=== PATIENT | female | born 1965 | race Caucasian/White ===

== ENCOUNTER 2024-11-25 15:07 | Observation (INO) | payer BC ==
--- NOTE | 2024-11-25 15:54 | ED ---
General Adult HPI - General Chief complaint: Abdominal Pain Stated complaint: apendecitis Time Seen by Provider: 11/25/24 15:18 Source: patient, RN notes reviewed, old records reviewed Mode of arrival: EMS Limitations: no limitations - History of Present Illness Initial comments: Patient is a 59-year-old female present to the emergency department with c oncerns with abdominal pain. Onset of symptoms was yesterday. Discomfort is right mid abdomen. No history of similar symptoms previously. Patient did have nausea and vomiting yesterday. No fever. No history of similar symptoms previously. Patient was seen at [facility] and CT scan was done concerning for appendicitis. Decision was made to have patient transferred for surgical care. - Related Data Allergies Allergy/AdvReac Type Severity Reaction Status Date / Time No Known Allergies Allergy Verified 11/25/24 15:20 Review of Systems ROS Statement: Those systems with pertinent positive or pertinent negative responses have been documented in the HPI. ROS Other: All systems not noted in ROS Statement are negative. Constitutional: Denies: fever Eyes: Denies: eye pain ENT: Denies: ear pain Respiratory: Denies: dyspnea Cardiovascular: Denies: chest pain Endocrine: Denies: fatigue Gastrointestinal: Reports: as per HPI, abdominal pain, nausea, vomiting Musculoskeletal: Denies: back pain Past Medical History Past Medical History: COPD, Hypertension, Osteoarthritis (OA) Past Surgical History: Cholecystectomy, Hysterectomy Smoking Status: Current every day smoker General Exam Limitations: no limitations General appearance: alert, in no apparent distress Head exam: Present: normocephalic Eye exam: Present: normal appearance Neck exam: Present: normal inspection Respiratory exam: Present: normal lung sounds bilaterally Cardiovascular Exam: Present: regular rate, normal rhythm GI/Abdominal exam: Present: soft, tenderness (Moderate tenderness right mid abdomen) Extremities exam: Present: normal inspection Neurological exam: Present: alert Psychiatric exam: Present: normal affect, normal mood Skin exam: Present: normal color Course Vital Signs 11/25/24 15:09 Temperature 98.7 F Pulse Rate 71 Respiratory 20 Rate Blood Pressure 109/70 O2 Sat by Pulse 95 Oximetry Medical Decision Making - Medical Decision Making Was pt. sent in by a medical professional or institution (, PA, SENIOR JAVA SOFTWARE DEVELOPER, urgent care, hospital, or usp...) When possible be specific @ -Patient was sent from [facility] Did you speak to anyone other than the patient for history (EMS, parent, family, police, friend...)? What history was obtained from this source @ -No Did you review nursing and triage notes (agree or disagree)? Why? @ -I reviewed and agree with nursing and triage notes Were old charts reviewed (outside hosp., previous admission, EMS record, old EKG, old radiological studies, urgent care reports/EKG's, usp records)? Report findings @ -I did review her chart from [facility] including results Differential Diagnosis (chest pain, altered mental status, abdominal pain women, abdominal pain men, vaginal bleeding, weakness, fever, dyspnea, syncope, headache, dizziness, GI bleed, back pain, seizure, CVA, palpatations, mental health, musculoskeletal)? @ -Differential Abdominal Pain Women: Appendicitis, Cholecystitis, diverticulosis, ischemic bowel, pancreatitis, hepatitis, UTI, gastroenteritis, AAA, incarcerated hernia, bowel obstruction, constipation, inflammatory bowel, hepatitis, peptic ulcer disease, splenic infarction, perforated viscus, vulvitis, ovarian torsion, PID, kidney stone, placenta abruption, this is not meant to be an all-inclusive list EKG interpreted by me (3pts min.). @ -As above X-rays interpreted by me (1pt min.). @ -None done CT interpreted by me (1pt min.). @ -None done U/S interpreted by me (1pt. min.). @ -None done What testing was considered but not performed or refused? (CT, X-rays, U/S, labs)? Why? @ -None What meds were considered but not given or refused? Why? @ -None Did you discuss the management of the patient with other professionals (lonnie sanz i.e. , PA, SENIOR JAVA SOFTWARE DEVELOPER, lab, RT, psych nurse, aids social worker, experimental assembler, teacher, campus police officer, block and case maker)? Give summary @ -Case discussed with Dr. Huang who will admit covering surgical call Was smoking cessation discussed for >3mins.? @ -No Was critical care preformed (if so, how long)? @ -No Were there social determinants of health that impacted care today? How? (Homelessness, low income, unemployed, alcoholism, drug addiction, transportation, low edu. Level, literacy, decrease access to med. care, correction, rehab)? @ -No Was there de-escalation of care discussed even if they declined (Discuss DNR or withdrawal of care, Hospice)? DNR status @ -No What co-morbidities impacted this encounter? (DM, HTN, Smoking, COPD, CAD, Cancer, CVA, ARF, Chemo, Hep., AIDS, mental health diagnosis, sleep apnea, morbid obesity)? @ -None Was patient admitted / discharged? Hospital course, mention meds given and route, prescriptions, significant lab abnormalities, going to OR and other pertinent info. @ -Patient presents with right mid abdominal discomfort, CT scan concerning for appendicitis. Patient transferred here and will be admitted for surgical care. Patient updated. Admission orders written. Undiagnosed new problem with uncertain prognosis? @ -No Drug Therapy requiring intensive monitoring for toxicity (Heparin, Nitro, Insulin, Cardizem)? @ -No Were any procedures done? @ -No Diagnosis/symptom? @ -Appendicitis Acute, or Chronic, or Acute on Chronic? @ -Acute Uncomplicated (without systemic symptoms) or Complicated (systemic symptoms)? @ -Default Side effects of treatment? @ -No Exacerbation, Progression, or Severe Exacerbation? @ -No Poses a threat to life or bodily function? How? (Chest pain, USA, MA, pneumonia, PE, COPD, DKA, ARF, appy, cholecystitis, CVA, Diverticulitis, Homicidal, Suicidal, threat to staff... and all critical care pts) @ -No Disposition Clinical Impression: Acute appendicitis Disposition: ADMITTED IP TO THIS HOSP Is patient prescribed a controlled substance at d/c from ED?: No Referrals: None,Stated [Primary Care Provider] - 1-2 days Time of Disposition: 15:53
[2024-11-25] MEDS ORDERED: HYDROmorphone 0.5 MG/0.5 ML SYRINGE IVP PRN (15:55)
[2024-11-25] MEDS ORDERED: NALOXONE 0.4 MG/ML 1 ML VIAL IV PRN ×2 (15:55→18:13)
--- NOTE | 2024-11-25 16:29 | P.GSHP ---
History of Present Illness H&P Date: 11/25/24 Chief Complaint: Right lower quadrant pain This a 59-year-old female who is a complaint of right lower quadrant pain for the last 3 days. Patient presents the emergency room at [facility].. Her workup on CAT scan shows evidence of acute appendicitis. Patient was transferred to [facility] due to surgeon availability. Past Medical History Past Medical History: COPD, Hypertension, Osteoarthritis (OA) Past Surgical History: Cholecystectomy, Hysterectomy Smoking Status: Current every day smoker Medications and Allergies Allergies Allergy/AdvReac Type Severity Reaction Status Date / Time No Known Allergies Allergy Verified 11/25/24 16:20 Surgical - Exam Vital Signs Temp Pulse Resp BP Pulse Ox 98.7 F 71 20 109/70 95 11/25/24 15:09 11/25/24 15:09 11/25/24 15:09 11/25/24 15:09 11/25/24 15:09 - General well developed, moderate distress - Eyes PERRL - ENT normal pinna - Neck no masses - Respiratory normal expansion - Cardiovascular Rhythm: regular - Abdomen Tenderness right lower quadrant. Abdomen: soft Assessment and Plan Assessment: CT findings at [facility] suggestive of acute appendicitis. Patient will undergo laparoscopic appendectomy today.
[2024-11-25] MEDS: ONDANSETRON 4 MG/2 ML VIAL IVP PRN (16:34)
[2024-11-25] MEDS: SODIUM CHLORIDE 0.9% 1,000 ML IV SCH (16:34)
[2024-11-25] MEDS: AMPICILLIN-SULBACTAM 3 GM in SODIUM CHLORIDE 0.9% 100 ML IVPB STA (16:35)
[2024-11-25] MEDS: HYDROmorphone 2 MG/ML 1 ML SYRINGE IVP PRN (16:35)
[2024-11-25] MEDS ORDERED: NEOSTIGMINE 1 MG/ML 10 ML VIAL ONE (17:14)
[2024-11-25] MEDS ORDERED: GLYCOPYRROLATE 0.2 MG/ML 2 ML VIAL ONE (17:14)
[2024-11-25] MEDS ORDERED: MIDAZOLAM 2 MG/2 ML VIAL ONE (17:14)
[2024-11-25] MEDS ORDERED: KETOROLAC 15 MG/ML 1 ML VIAL ONE (17:14)
[2024-11-25] MEDS ORDERED: SUCCINYLCHOLINE CHLORIDE 200 MG/10 ML VIAL IV ONE (17:14)
[2024-11-25] MEDS ORDERED: PHENYLEPHRINE-0.9% NACL SYG 1,000 MCG/10 ML SYRINGE ONE (17:14)
[2024-11-25] MEDS ORDERED: ROCURONIUM 10 MG/ML (5 ML VIAL) IV ONE (17:14)
[2024-11-25] MEDS ORDERED: fentaNYL (PF) 50 MCG/ML 2 ML AMP ONE (17:14)
[2024-11-25] MEDS ORDERED: PROPOFOL 10 MG/ML 20 ML VIAL IV ONE (17:14)
[2024-11-25] MEDS ORDERED: SUGAMMADEX SODIUM 100 MG/ML SYR IV ONE (17:14)
[2024-11-25] MEDS: HEPARIN SODIUM,PORCINE 5,000 UNIT/ML 1 ML VIAL SQ STA (17:14)
[2024-11-25] MEDS ORDERED: LIDOCAINE 1% INJ 10MG/ML (20 ML MDV) ONE (17:14)
[2024-11-25] MEDS: IV FLUID CONTINUATION 1,000 ML IV ONE ×2 (17:18→18:45)
[2024-11-25] MEDS: LIDOCAINE 1%-EPI 1:100,000 20 ML VIAL SQ ONE (17:41)
[2024-11-25] MEDS ORDERED: ONDANSETRON 4 MG/2 ML VIAL IVP PRN (18:13)
--- NOTE | 2024-11-25 18:13 | P.OP ---
Date of Procedure: 11/25/24 Preoperative Diagnosis: Acute appendicitis Postoperative Diagnosis: Acute appendicitis Procedure(s) Performed: Laparoscopic appendectomy Anesthesia: LADARIUS Surgeon: Chong Fisher Estimated Blood Loss (ml): 5 Pathology: other (Appendix) Condition: stable Disposition: PACU Description of Procedure: The patient's placed on the operating table in the supine position. The patient received general anesthesia. The abdomen was prepped and draped in the usual sterile fashion. The skin was anesthetized 1% local Xylocaine at the trocar sites. Using an 11 blade the skin was incised at the umbilicus. The umbilicus was grasped with a Gilman clamp and then a Veress needle was placed into the peritoneal cavity. Position of the Veress needle was confirmed with positive drop test. After adequate insufflation a 5 mm trocar was placed into the peritoneal cavity. The abdomen was further insufflated. And then the laparoscope was placed in the peritoneal cavity. Next a 5 mm trocar was placed in the midline suprapubic position. And then a 10 mm trocar was placed in the midline epigastric position. The patient was rotated with the right side up and in Trendelenburg. The appendix was visualized. The appendix appeared to be inflamed. The appendix was grasped and then using the Harmonic scissors the mesoappendix was divided. A PDS Endoloop was then placed around the base of the appendix. And then the appendix was divided using Harmonic scissors. The appendix was placed into an Endo Catch and brought out through the 10 mm trocar site. The abdomen was irrigated. There is no bleeding seen. The trochars withdrawn. The skin was closed interrupted 3-0 Monocryl suture. Dermabond dressing was applied. Patient was sent to recovery room in stable condition.
[2024-11-25] MEDS ORDERED: ZOLPIDEM 5 MG TAB PO PRN (21:23)
[2024-11-25] MEDS: TOPIRAMATE 25 MG TAB PO SCH (21:59)
[2024-11-25] MEDS: PRAMIPEXOLE 0.25 MG TAB PO PRN (21:59)
[2024-11-25] MEDS: D5-0.45% NACL WITH KCL 20MEQ/L 1,000 ML IV SCH (21:59)
[2024-11-25] MEDS: AMPICILLIN-SULBACTAM 3 GM in SODIUM CHLORIDE 0.9% 100 ML IVPB SCH (23:50)
[2024-11-25] MEDS: KETOROLAC 15 MG/ML 1 ML VIAL IVP SCH (23:52)
[2024-11-26] MEDS: HYDROmorphone 2 MG/ML 1 ML SYRINGE IVP PRN (00:57)
[2024-11-26] MEDS: LEVOTHYROXINE 50 MCG TAB PO SCH (06:32)
[2024-11-26 08:07] LABS: Basophils # (A) 0.02 X 10*3/uL (0.00-0.10); Basophils % (A) 0.2 %; Eosinophils # (A) 0.03 X 10*3/uL (0.04-0.35); Eosinophils % (A) 0.3 %; HCT 36.9 % (37.2-46.3); Lymphocytes # (A) 1.54 X 10*3/uL (0.90-5.00); Lymphocytes % (A) 15.7 %; MCH 29.3 pg (27.0-32.0); MCHC 32.5 g/dL (32.0-37.0); MCV 90.2 FL (80.0-97.0); Mean Platelet Volume 10.2 FL (9.5-12.2); Monocytes # (A) 0.66 X 10*3/uL (0.20-1.00); Monocytes % (A) 6.7 %; NRBC Per 100 WBC 0 X 10*3/uL (0.00-0.01); Neutrophils # (A) 7.51 X 10*3/uL (1.80-7.70); Neutrophils % (A) 76.7 %; Platelet Count 201 X 10*3/uL (140-440); RBC 4.09 X 10*6/uL (4.10-5.20); RDW 13.1 % (11.5-14.5)
[2024-11-26] MEDS: AMITRIPTYLINE HCL 25 MG TAB PO SCH (09:23)
[2024-11-26] MEDS: DULoxetine HCL 60 MG CAPSULE.DR PO SCH (09:24)
[2024-11-26] MEDS: ENOXAPARIN 40 MG/0.4 ML SYRINGE SQ SCH (09:24)
[2024-11-26] MEDS: buPROPion XL 150 MG TAB.ER.24H PO SCH (09:24)
[2024-11-26] MEDS: PANTOPRAZOLE 40 MG/10 ML VIAL IV SCH (09:25)
[2024-11-26] MEDS: LISINOPRIL-HCTZ 20-25 MG 1 EACH TAB PO SCH (09:25)
[2024-11-26] MEDS: PREGABALIN 75 MG CAP PO SCH (09:25)
[2024-11-26] MEDS ORDERED: HYDROcodone/APAP 5-325MG 1 EACH TAB PO PRN (12:51)
--- NOTE | 2024-11-26 13:29 | P.PN ---
Subjective Progress Note Date: 11/26/24 SURGICAL PROGRESS NOTE CHIEF COMPLAINT: Acute appendicitis HISTORY OF PRESENT ILLNESS: Patient is postop day #1 status post laparoscopic appendectomy. Patient complains of abdominal pain and being mildly distended. She denies any nausea or vomiting. Denies any flatus. Denies any difficulty urinating. Afebrile. BP 91/58 WBC is 9.80 hgb 12 PHYSICAL EXAM: VITAL SIGNS: Reviewed. GENERAL: Well-developed in no acute distress. HEENT: No sclera icterus. Extraocular movements grossly intact. Moist buccal mucosa. Head is atraumatic, normocephalic. ABDOMEN: Soft. Mildly distended. Tender at incision sites. Incision sites clean dry and intact. NEUROLOGIC: Alert and oriented. Cranial nerves II through XII grossly intact. ASSESSMENT: 1. Acute appendicitis PLAN: - Advance diet to full liquids and then as tolerated - Add Berger for oral pain medication - Encourage patient to ambulate - Continue antibiotics - Continue IV fluids - Patient's been hypotensive. Discontinue Zestoretic. - Give 1 liter fluid bolus Physician Accounting Manager Assistant Controller note has been reviewed by physician. Signing provider agrees with the documented findings, assessment, and plan of care. Objective - Vital Signs Vital signs: Vital Signs Temp 98.5 F 11/26/24 07:00 Pulse 80 11/26/24 07:00 Resp 17 11/26/24 07:00 BP 91/58 11/26/24 07:00 Pulse Ox 96 11/26/24 09:04 FiO2 Intake & Output 11/25/24 11/26/24 11/26/24 18:59 06:59 18:59 Intake Total 1200 975 Output Total 5 Balance 1195 975 Weight 92.986 kg 92.986 kg Intake: IV 1200 Intake, IV Titration 975 Amount Ampicillin-Sulbactam 3 gm 100 In Sodium Chloride 0.9% 100 ml @ 200 mls/hr IVPB Q8HR [facility] Rx#:[id number] D5-0.45% NaCl with KCl 875 20Meq/l 1,000 ml @ 125 mls/hr IV .Q8H [facility] Rx#: [id number] Output: Estimated Blood Loss 5 Other: # Voids 1 - Labs CBC & Chem 7: 11/26/24 04:24 Labs: Abnormal Lab Results - Last 24 Hours (Table) 11/26/24 Range/Units 04:24 RBC 4.09 L (4.10-5.20) X 10*6/uL Hct 36.9 L (37.2-46.3) % Eosinophils # 0.03 L (0.04-0.35) X 10*3/uL
[2024-11-26] MEDS: SODIUM CHLORIDE 0.9% 1,000 ML IV ONE (14:37)
[2024-11-26 16:15] LABS: African American GFR (CKD) >90 (>60 ml/min/1.73 sqM); Anion Gap 6 mmol/L; Blood Urea Nitrogen 12 mg/dL (7-17); Calcium 7.8 mg/dL (8.4-10.2); Carbon Dioxide 22 mmol/L (22-30); Chloride 106 mmol/L (98-107); Glucose 73 mg/dL (74-99); Non-African American GFR(CKD) 83 (>60 ml/min/1.73 sqM); Potassium 3.4 mmol/L (3.5-5.1); Sodium 134 mmol/L (137-145)
[2024-11-26] MEDS: LACTATED RINGERS 1,000 ML IV ONE (16:19)
[2024-11-26] MEDS ORDERED: FLUTICASONE NASAL 50MCG/SPRAY 16GM BTL EA NOSTRIL PRN (18:10)
[2024-11-26] MEDS: SUMAtriptan succinate 50 MG TAB PO PRN (19:07)
[2024-11-26] MEDS: ACETAMINOPHEN TAB 325 MG TAB PO PRN (19:08)
[2024-11-26] MEDS: HYDROmorphone 0.5 MG/0.5 ML SYRINGE IVP PRN (19:08)
[2024-11-26] MEDS ORDERED: HYDROmorphone 1 MG/ML 1 ML SYRINGE IVP PRN (20:43)
--- NOTE | 2024-11-27 05:36 | P.CONS ---
History of Present Illness - Reason for Consult Consult date: 11/26/24 Medical management, status post appendectomy - History of Present Illness This is a pleasant 59-year-old female who presented to the emergency department as a transfer from [place] with abdominal pain with concerns of appendicitis. Patient is admitted to surgery and is status post appendectomy. Patient reports she follows with Dr. Rivas in the outpatient setting past medical history of COPD, pretension, osteoarthritis nicotine use denies alcohol or illicit drug use. Patient reports her pain was intense and abrupt 1 night prior which prompted her to go to the ER. CT imaging was concerning for possible appendicitis and sent to [facility] for surgical services. Labs reviewed from this morning revealed a normal white count of 9.8, hemoglobin stable at 12.0, platelets 201, sodium 134 potassium 3.4 BUN 12 with a creatinine of 0.78. REVIEW OF SYSTEMS: CONSTITUTIONAL: No fever, no malaise, reports of mild fatigue. HEENT: No recent visual problems or hearing problems. Denied any sore throat. CARDIOVASCULAR: No chest pain, orthopnea, PND, no palpitations, no syncope. PULMONARY: No shortness of breath, no cough, no hemoptysis. GASTROINTESTINAL: No diarrhea, reports occasional nausea, no vomiting, reports continued abdominal pain although slightly improved from yesterday. NEUROLOGICAL: No headaches, no weakness, no numbness. HEMATOLOGICAL: Denies any bleeding or petechiae. GENITOURINARY: Denies any burning micturition, frequency, or urgency. MUSCULOSKELETAL/RHEUMATOLOGICAL: Denies any joint pain, swelling, or any muscle pain. ENDOCRINE: Denies any polyuria or polydipsia. The rest of the 14-point review of systems is negative. PHYSICAL EXAMINATION: GENERAL: The patient is alert and oriented x3. Well developed, well nourished. Obese HEENT: Pupils are round and equally reacting to light. EOMI. No scleral icterus. No conjunctival pallor. Normocephalic, atraumatic. No pharyngeal erythema. No thyromegaly. CARDIOVASCULAR: S1 and S2 muffled PULMONARY: Diminished breath sounds bilaterally otherwise chest is clear to auscultation, no wheezing or crackles. ABDOMEN: Soft, tender, nondistended, normoactive bowel sounds. No palpable organomegaly. MUSCULOSKELETAL: No joint swelling or deformity. EXTREMITIES: No cyanosis, clubbing, or pedal edema. NEUROLOGICAL: Gross neurological examination did not reveal any focal deficits. SKIN: No rashes. Assessment: Abdominal pain, secondary to acute appendicitis, status post appendectomy History of COPD, not in exacerbation History of osteoarthritis History of hypertension Obesity with a BMI 33.1 Continued ongoing nicotine dependence GI prophylaxis DVT prophylaxis Full code Plan: Patient admitted under surgical services status post appendectomy reports to feeling improved although was reporting continued discomfort and generalized weakness Encouraged increase activity as tolerated and sitting up more frequently in the chair Home medications reviewed and resumed as appropriate Recommend incentive spirometer at least 10 times every hour while awake Patient tolerating clear liquids and is being advanced to liquids per general surgery We will continue to follow with general surgery during hospitalization. Thank you kindly for this consultation The impression and plan of care has been dictated by Salma Feng, Nurse Practitioner as directed. Dr. Leola MD I have performed a history and examination and MDM of this patient, discussed the same with the dictator, and agree with the dictator's assessment and plan as written ,documented as a scribe. Based on total visit time, I have performed more than 50% of the visit. Past Medical History Past Medical History: COPD, Hypertension, Osteoarthritis (OA) History of Any Multi-Drug Resistant Organisms: None Reported Past Surgical History: Appendectomy, Cholecystectomy, Hysterectomy Past Anesthesia/Blood Transfusion Reactions: No Reported Reaction Smoking Status: Current every day smoker Medications and Allergies Home Medications Medication Instructions Recorded Confirmed Type Amitriptyline HCl [Elavil] 25 mg PO BID 11/25/24 11/25/24 History DULoxetine HCL [Cymbalta] 120 mg PO DAILY 11/25/24 11/25/24 History Levothyroxine Sodium [Synthroid] 50 mcg PO DAILY 11/25/24 11/25/24 History Lisinopril-Hctz 20-25 mg 1 tab PO DAILY 11/25/24 11/25/24 History [Zestoretic 20-25] Pramipexole [Mirapex] 0.25 mg PO QID PRN 11/25/24 11/25/24 History Pregabalin [Lyrica] 150 mg PO DAILY 11/25/24 11/25/24 History SUMAtriptan succinate [Imitrex] 100 mg PO BID PRN 11/25/24 11/25/24 History Topiramate [Topamax] 50 mg PO BID 11/25/24 11/25/24 History Zolpidem [Ambien] 10 mg PO HS PRN 11/25/24 11/25/24 History buPROPion XL [Wellbutrin XL] 150 mg PO DAILY 11/25/24 11/25/24 History rOPINIRole HCL [Requip] 3 mg PO BID 11/25/24 11/25/24 History Allergies Allergy/AdvReac Type Severity Reaction Status Date / Time No Known Allergies Allergy Verified 11/25/24 16:31 Physical Exam Vitals: Vital Signs Temp Pulse Pulse Resp BP BP Pulse Ox 11/26/24 09:04 96 11/26/24 07:00 98.5 F 80 17 91/58 95 11/26/24 02:40 98.1 F 95 93/55 96 11/25/24 23:50 84 107/67 97 11/25/24 22:50 93 100/63 95 11/25/24 21:50 98 93/53 92 L 11/25/24 21:20 92 103/64 90 L 11/25/24 20:50 96 100/61 91 L 11/25/24 20:35 94 16 104/66 90 L 11/25/24 20:20 79 16 100/65 92 L 11/25/24 20:05 76 18 94/56 93 L 11/25/24 19:50 86 16 102/65 93 L 11/25/24 19:20 72 16 95/59 94 L 11/25/24 19:05 68 18 99/55 95 11/25/24 18:50 85 16 98/57 94 L 11/25/24 18:35 74 18 113/64 95 11/25/24 18:21 97.7 F 96 16 97 11/25/24 17:09 97.6 F 76 16 102/56 95 11/25/24 16:54 68 16 138/65 98 11/25/24 15:09 98.7 F 71 20 109/70 95 Intake and Output 11/25/24 11/26/24 11/26/24 22:59 06:59 14:59 Intake Total 1200 975 Output Total 5 Balance 1195 975 Intake: IV 1200 Intake, IV Titration 975 Amount Ampicillin-Sulbactam 3 gm 100 In Sodium Chloride 0.9% 100 ml @ 200 mls/hr IVPB Q8HR [facility] Rx#:[id number] D5-0.45% NaCl with KCl 875 20Meq/l 1,000 ml @ 125 mls/hr IV .Q8H [facility] Rx#: [id number] Output: Estimated Blood Loss 5 Other: # Voids 0 1 Weight 92.986 kg 92.986 kg Results CBC & Chem 7: 11/26/24 04:24 11/26/24 15:37 Labs: Abnormal Lab Results - Last 24 Hours (Table) 11/26/24 Range/Units 04:24 RBC 4.09 L (4.10-5.20) X 10*6/uL Hct 36.9 L (37.2-46.3) % Eosinophils # 0.03 L (0.04-0.35) X 10*3/uL
[2024-11-27 08:20] LABS: Basophils # (A) 0.03 X 10*3/uL (0.00-0.10); Basophils % (A) 0.4 %; Eosinophils # (A) 0.11 X 10*3/uL (0.04-0.35); Eosinophils % (A) 1.4 %; HCT 36.5 % (37.2-46.3); HGB 11.6 g/dL (12.0-15.0); Lymphocytes # (A) 1.94 X 10*3/uL (0.90-5.00); Lymphocytes % (A) 25.5 %; MCH 28.9 pg (27.0-32.0); MCHC 31.8 g/dL (32.0-37.0); Mean Platelet Volume 10.2 FL (9.5-12.2); Monocytes # (A) 0.54 X 10*3/uL (0.20-1.00); Monocytes % (A) 7.1 %; NRBC Per 100 WBC 0 X 10*3/uL (0.00-0.01); Neutrophils # (A) 4.97 X 10*3/uL (1.80-7.70); Neutrophils % (A) 65.3 %; Platelet Count 186 X 10*3/uL (140-440); RBC 4.01 X 10*6/uL (4.10-5.20); RDW 12.8 % (11.5-14.5); WBC 7.61 X 10*3/uL (4.50-10.00)
[2024-11-27 08:33] LABS: BUN/Creat Ratio 9.75 Ratio (12.00-20.00); Blood Urea Nitrogen 7.8 mg/dL (9.0-27.0); Calcium 8.2 mg/dL (8.7-10.3); Carbon Dioxide 22.2 mmol/L (21.6-31.8); Chloride 112 mmol/L (96-109); Glucose 112 mg/dL (70-110); Potassium 3.7 mmol/L (3.5-5.5); Sodium 140 mmol/L (135-145)
--- NOTE | 2024-11-27 15:10 | P.PN ---
Subjective Progress Note Date: 11/27/24 SURGICAL PROGRESS NOTE CHIEF COMPLAINT: Acute appendicitis HISTORY OF PRESENT ILLNESS: Patient is postop day #2 status post laparoscopic appendectomy. Patient reports she is feeling better. She did have a bowel movement and flatus. Denies any nausea or vomiting. She is tolerating full liquid diet. She did receive an additional 1 L fluid bolus yesterday. Patient reports that her urine is business systems analyst in color. Afebrile. BP is better after fluid bolus at 111/72. WBC 7.61 Hgb 11.6 sodium is 140 potassium 3.7 creatinine 0.8 PHYSICAL EXAM: VITAL SIGNS: Reviewed. GENERAL: Well-developed in no acute distress. HEENT: No sclera icterus. Extraocular movements grossly intact. Moist buccal mucosa. Head is atraumatic, normocephalic. ABDOMEN: Soft. Mildly distended. Tender at incision sites. Incision sites clean dry and intact. NEUROLOGIC: Alert and oriented. Cranial nerves II through XII grossly intact. ASSESSMENT: 1. Acute appendicitis PLAN: -Advance diet to regular -Continue antibiotics -Continue IV fluids at decreased rate - Continue pain management - Encourage patient to increase activity level - DVT prophylaxis Lovenox - Anticipate discharge possibly tomorrow - Incentive spirometer ordered Physician Weigh And Charge Worker note has been reviewed by physician. Signing provider agrees with the documented findings, assessment, and plan of care. Objective - Vital Signs Vital signs: Vital Signs Temp 98.3 F 11/27/24 13:34 Pulse 78 11/27/24 13:34 Resp 18 11/27/24 13:34 BP 111/72 11/27/24 13:34 Pulse Ox 98 11/27/24 13:34 FiO2 Intake & Output 11/26/24 11/27/24 11/27/24 18:59 06:59 18:59 Intake Total 480 240 Output Total 400 1100 1000 Balance 80 -1100 -760 Intake: Oral 480 240 Output: Urine 400 1100 1000 Other: Voiding Method Toilet # Voids 1 - Labs CBC & Chem 7: 11/27/24 05:33 11/27/24 05:33 Labs: Abnormal Lab Results - Last 24 Hours (Table) 11/26/24 11/27/24 11/27/24 Range/Units 15:37 05:33 05:33 RBC 4.01 L (4.10-5.20) X 10*6/uL Hgb 11.6 L (12.0-15.0) g/dL Hct 36.5 L (37.2-46.3) % MCHC 31.8 L (32.0-37.0) g/dL Sodium 134 L (137-145) mmol/L Potassium 3.4 L (3.5-5.1) mmol/L Chloride 112 H (96-109) mmol/L BUN 7.8 L (9.0-27.0) mg/dL BUN/Creatinine Ratio 9.75 L (12.00-20.00) Ratio Glucose 73 L 112 H (74-99) mg/dL Calcium 7.8 L 8.2 L (8.4-10.2) mg/dL Microbiology - Last 24 Hours (Table) 11/25/24 16:27 Blood Culture - Preliminary Blood
[2024-11-27] MEDS: AMPICILLIN-SULBACTAM 3 GM in SODIUM CHLORIDE 0.9% 100 ML IVPB SCH (15:45)
--- NOTE | 2024-11-27 22:48 | P.PN ---
Subjective Progress Note Date: 11/27/24 - Reason for Consult Consult date: 11/26/24 Medical management, status post appendectomy - History of Present Illness This is a pleasant 59-year-old female who presented to the emergency department as a transfer from [place] with abdominal pain with concerns of appendicitis. Patient is admitted to surgery and is status post appendectomy. Patient reports she follows with Dr. Rivas in the outpatient setting past medical history of COPD, pretension, osteoarthritis nicotine use denies alcohol or illicit drug use. Patient reports her pain was intense and abrupt 1 night prior which prompted her to go to the ER. CT imaging was concerning for possible appendicitis and sent to [facility] for surgical services. Labs reviewed from this morning revealed a normal white count of 9.8, hemoglobin stable at 12.0, platelets 201, sodium 134 potassium 3.4 BUN 12 with a creatinine of 0.78. 11/27/2024 Patient is seen in follow-up today reports to feeling much improved continues with some discomfort although significantly improved. Patient with general surgery as attending recommends monitoring overnight and 1 more day of an tibiotics given findings during surgery. Patient is afebrile and white count is normal and patient denies any chest pain, shortness of breath, or palpitations. Patient tolerating diet and being advanced per surgery. Encouraged incentive spirometer use and continued as needed inhalers and increase activity as tolerated. Review of systems: Constitutional: No reports of fatigue, fever, or chills Cardiovascular: No reports of chest pain or palpitations Respiratory: No reports of shortness of breath or cough GI: No reports of nausea, vomiting, or diarrhea, reports passing gas and had a bowel movement and is tolerating diet asking for advance : No reports of dysuria or retention Neurovascular: No reports of weakness or numbness All medications have been reviewed PHYSICAL EXAMINATION: GENERAL: The patient is alert and oriented x3. Well developed, well nourished. Obese HEENT: Pupils are round and equally reacting to light. EOMI. No scleral icterus. No conjunctival pallor. Normocephalic, atraumatic. No pharyngeal erythema. No thyromegaly. CARDIOVASCULAR: S1 and S2 muffled PULMONARY: Diminished breath sounds bilaterally otherwise chest is clear to auscultation, no wheezing or crackles. ABDOMEN: Soft, tender, nondistended, normoactive bowel sounds. No palpable organomegaly. MUSCULOSKELETAL: No joint swelling or deformity. EXTREMITIES: No cyanosis, clubbing, or pedal edema. NEUROLOGICAL: Gross neurological examination did not reveal any focal deficits. SKIN: No rashes. Assessment: Abdominal pain, secondary to acute appendicitis, status post appendectomy History of COPD, not in exacerbation History of osteoarthritis History of hypertension Obesity with a BMI 33.1 Continued ongoing nicotine dependence GI prophylaxis DVT prophylaxis Full code Plan: Patient admitted under surgical services status post appendectomy reports to feeling better tolerating diet asking for an advancing diet. Patient is afebrile and white count is normal with surgery recommending continued IV antibiotics for another 24 hours prior to discharge Encouraged increase activity as tolerated and sitting up more frequently in the chair. Patient reports family is coming and she will be taking a shower this evening Home medications reviewed and resumed as appropriate Encouraged incentive spirometer at least 10 times every hour while awake Patient diet is being advanced per general surgery Plan is for discharge planning in the next 24 hours We will continue to follow with general surgery during hospitalization. Thank you kindly for this consultation The impression and plan of care has been dictated by Salma Feng, Nurse Practitioner as directed. Dr. Leola MD I have performed a history and examination and MDM of this patient, discussed the same with the dictator, and agree with the dictator's assessment and plan as written ,documented as a scribe. Based on total visit time, I have performed more than 50% of the visit. Objective - Vital Signs Vital signs: Vital Signs Temp 98.3 F 11/27/24 07:00 Pulse 81 11/27/24 07:00 Resp 18 11/27/24 07:00 BP 108/59 11/27/24 07:00 Pulse Ox 97 11/27/24 07:00 FiO2 Intake & Output 11/26/24 11/27/24 11/27/24 18:59 06:59 18:59 Intake Total 480 240 Output Total 400 1100 1000 Balance 80 -1100 -760 Intake: Oral 480 240 Output: Urine 400 1100 1000 Other: Voiding Method Toilet # Voids 1 - Labs CBC & Chem 7: 11/27/24 05:33 11/27/24 05:33 Labs: Abnormal Lab Results - Last 24 Hours (Table) 11/26/24 11/27/24 11/27/24 Range/Units 15:37 05:33 05:33 RBC 4.01 L (4.10-5.20) X 10*6/uL Hgb 11.6 L (12.0-15.0) g/dL Hct 36.5 L (37.2-46.3) % MCHC 31.8 L (32.0-37.0) g/dL Sodium 134 L (137-145) mmol/L Potassium 3.4 L (3.5-5.1) mmol/L Chloride 112 H (96-109) mmol/L BUN 7.8 L (9.0-27.0) mg/dL BUN/Creatinine Ratio 9.75 L (12.00-20.00) Ratio Glucose 73 L 112 H (74-99) mg/dL Calcium 7.8 L 8.2 L (8.4-10.2) mg/dL Microbiology - Last 24 Hours (Table) 11/25/24 16:27 Blood Culture - Preliminary Blood
[2024-11-28 07:24] VITALS: BP 122/80; PULSE 79; RESP 17; TEMP 98.4
--- NOTE | 2024-11-28 13:11 | P.DS ---
Providers Date of admission: 11/25/24 15:56 Expected date of discharge: 11/28/24 Attending physician: Chong Fisher Consults: 11/25/24 18:13 Consult Physician Routine Consulting Provider: Clayton Noriega Consult Reason/Comments: Medical management Do you want consulting provider notified?: Yes Primary care physician: Nano Rivas DO Hospital Course: Discharge diagnosis 1. Acute appendicitis Hospital course This is a 59-year-old female presented to the hospital with right lower quadrant abdominal pain x 3 days. She was a transfer from [facility]. She had a CT scan completed there that reported acute appendicitis. She was transferred to [facility] to be evaluated by general surgery. Patient is now status post laparoscopic appendectomy. Patient tolerated surgery well. Her pain is controlled. She is tolerating diet. She is having bowel movements. She is afebrile. She has been up and ambulating. She is stable for discharge. Patient discharged with oral antibiotics. Please refer to chart for any further details. Physician Creosoting Engineer note has been reviewed by physician. Signing provider agrees with the documented findings, assessment, and plan of care. Patient Condition at Discharge: Stable Plan - Discharge Summary Discharge Rx Participant: No New Discharge Prescriptions: New metroNIDAZOLE [Flagyl] 500 mg PO TID #30 tab Levofloxacin [Levaquin] 500 mg PO DAILY 10 Days #10 tab HYDROcodone/APAP 5-325MG [[place] 5-325] 1 tab PO Q6HR PRN 3 Days #12 tab PRN Reason: Pain Continue DULoxetine HCL [Cymbalta] 120 mg PO DAILY Pramipexole [Mirapex] 0.25 mg PO QID PRN PRN Reason: restless legs Pregabalin [Lyrica] 150 mg PO DAILY Topiramate [Topamax] 50 mg PO BID Zolpidem [Ambien] 10 mg PO HS PRN PRN Reason: Insomnia Amitriptyline HCl [Elavil] 25 mg PO BID buPROPion XL [Wellbutrin XL] 150 mg PO DAILY Levothyroxine Sodium [Synthroid] 50 mcg PO DAILY Lisinopril-Hctz 20-25 mg [Zestoretic 20-25] 1 tab PO DAILY rOPINIRole HCL [Requip] 3 mg PO BID SUMAtriptan succinate [Imitrex] 100 mg PO BID PRN PRN Reason: Migraine Headache Discharge Medication List Amitriptyline HCl [Elavil] 25 mg PO BID 11/25/24 [History] DULoxetine HCL [Cymbalta] 120 mg PO DAILY 11/25/24 [History] Levothyroxine Sodium [Synthroid] 50 mcg PO DAILY 11/25/24 [History] Lisinopril-Hctz 20-25 mg [Zestoretic 20-25] 1 tab PO DAILY 11/25/24 [History] Pramipexole [Mirapex] 0.25 mg PO QID PRN 11/25/24 [History] Pregabalin [Lyrica] 150 mg PO DAILY 11/25/24 [History] SUMAtriptan succinate [Imitrex] 100 mg PO BID PRN 11/25/24 [History] Topiramate [Topamax] 50 mg PO BID 11/25/24 [History] Zolpidem [Ambien] 10 mg PO HS PRN 11/25/24 [History] buPROPion XL [Wellbutrin XL] 150 mg PO DAILY 11/25/24 [History] rOPINIRole HCL [Requip] 3 mg PO BID 11/25/24 [History] HYDROcodone/APAP 5-325MG [[place] 5-325] 1 tab PO Q6HR PRN 3 Days #12 tab 11/28/24 [Rx] Levofloxacin [Levaquin] 500 mg PO DAILY 10 Days #10 tab 11/28/24 [Rx] metroNIDAZOLE [Flagyl] 500 mg PO TID #30 tab 11/28/24 [Rx] Follow up Appointment(s)/Referral(s): None,Stated [REFERRING] - 1-2 days Chong Fisher MD [STAFF PHYSICIAN] - 1 Week Activity/Diet/Wound Care/Special Instructions: No driving while taking [place] No lifting over 10 pounds Shower daily. No soaking or tub baths for 2 weeks Very light activity until you are reevaluated at your follow up appointment with your surgeon Discharge Disposition: HOME SELF-CARE
== END 2024-11-28 13:40 | disposition home or self-care (01) ==
LOC: EC 15:07 → 6NMEDSUR 15:56
PROVIDERS: ADMIT Surgery; ATTEND Surgery
DX: K35.80 Unspecified acute appendicitis (principal); J44.9 Chronic obstructive pulmonary disease, unspecified; I95.9 Hypotension, unspecified; E03.9 Hypothyroidism, unspecified; M19.90 Unspecified osteoarthritis, unspecified site; I10 Essential (primary) hypertension; K21.9 Gastro-esophageal reflux disease without esophagitis; E66.9 Obesity, unspecified; Z68.33 Body mass index [BMI] 33.0-33.9, adult; F17.200 Nicotine dependence, unspecified, uncomplicated; Z79.890 Hormone replacement therapy; Z79.899 Other long term (current) drug therapy; Z90.710 Acquired absence of both cervix and uterus; Z87.442 Personal history of urinary calculi
CPT/HCPCS: 96372 ×3; 96374; 96375; 99285; 36415; 94760; 88304; 80048 ×2; 83605; 85025 ×2; 87040; 44970; G0378 ×4; J2250; J0330; J1171 ×3; J1644; J2710; J2405; J2003; J1650 ×3; J3010; J0295 ×4; J1885 ×3; J2704; J2371; J1596; J2470 ×3